=== PATIENT | female | born 1965 | race Two or more races ===

== ENCOUNTER 2017-12-25 11:40 | Inpatient (IN) | payer OTHER ==
[2017-12-25] MEDS ORDERED: levETIRAcetam 1000MG/NACL 100 ML IV ONE (11:45)
[2017-12-25] MEDS ORDERED: LORazepam 2 MG/ML INJ ONE (11:47)
[2017-12-25] MEDS ORDERED: ONDANSETRON 4 MG/2 ML VIAL ONE (11:55)
[2017-12-25] MEDS ORDERED: LORazepam 2 MG/ML INJ IVP ONE ×2 (11:55→12:14)
[2017-12-25] MEDS ORDERED: ONDANSETRON 4 MG/2 ML VIAL IVP ONE (11:55)
[2017-12-25] MEDS ORDERED: NS 1,000 ML IV ONE (11:56)
[2017-12-25] MEDS ORDERED: KETAMINE IVP ONE (12:02)
[2017-12-25 12:05] LABS: PLATELET COUNT 235 10^3/uL (150-400)
[2017-12-25] MEDS ORDERED: MIDAZOLAM 2 MG/2 ML VIAL IVP ONE (12:14)
[2017-12-25] MEDS ORDERED: MIDAZOLAM 2 MG/2 ML VIAL ONE (12:14)
--- NOTE | 2017-12-25 12:22 | EDPHY ---
H & P Stated Complaint: witnessed sz. Time Seen by Provider: 12/25/17 11:44 HPI/ROS: CHIEF COMPLAINT: Seizure HISTORY OF PRESENT ILLNESS: The patient presents the emergency department emergently with a seizure. She reportedly arrived in [place] from [place] week ago. Paramedics report according to bystander she has no known history of a seizure disorder. The patient is unable to provide any history as she is postictal. The patient did received 2 mg of Versed prior to arrival. REVIEW OF SYSTEMS: A comprehensive 10 point review of systems is unobtainable secondary to altered mental status Source: EMS Exam Limitations: Clinical condition - Personal History LMP (Females 10-55): Unknown Current Tetanus/Diphtheria Vaccine: Unsure Current Tetanus Diphtheria and Acellular Pertussis (TDAP): Unsure - Medical/Surgical History Other PMH: PMH: unknown - Family History Significant Family History: No pertinent family hx - Social History Smoking Status: Unknown if ever smoked - Physical Exam Exam: General Appearance: 39-year-old female appears stated age, postictal, confused and agitated Eyes: Pupils equal and round no pallor or injection ENT, Mouth: Mucous membranes moist, tongue bite Respiratory: There are no retractions, lungs are clear to auscultation Cardiovascular: Regular rate and rhythm Gastrointestinal: Abdomen is soft and nontender, no masses, bowel sounds normal Neurological: Withdrawals to pain all 4 extremities, unable to participate neurologic exam Skin: Warm and dry, no rashes Musculoskeletal: Neck is supple nontender Extremities: symmetrical, full range of motion Constitutional: Initial Vital Signs Temperature (C) 35.5 C L 12/25/17 11:42 Heart Rate 80 12/25/17 11:42 Respiratory Rate 18 12/25/17 11:42 Blood Pressure 109/92 H 12/25/17 11:42 O2 Sat (%) 97 12/25/17 11:42 O2 Delivery Mode Nasal Cannula O2 (L/minute) 3 Allergies/Adverse Reactions: Unable to Assess Allergy (Unverified 12/25/17 11:48) Home Medications: Medication Instructions Recorded Acetaminophen [Tylenol ES 500 mg 500 - 1,000 mg PO Q6 PRN 12/25/17 (*)] Desmoresina 178mcg 12/25/17 Herbals/Supplements -Info Only 1 ea PO DAILY 12/25/17 Medical Decision Making - Diagnostics EKG Interpretation: EKG: Complete interpretation has been separately recorded in the [facility] archive. Summary impression: Sinus rhythm, rate 80 Imaging Results: Imaging Impressions Chest X-Ray 12/25/17 11:44 Impression: Limited hypoventilatory chest with elevated right hemidiaphragm, basilar opacities suggesting atelectasis, and peribronchial thickening that could be related to bronchitis or mild fluid overload. Head CT 12/25/17 11:44 Impression: 1. No acute hemorrhage, hydrocephalus or mass effect. 2. 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 3. Consider MRI of the brain, if there is continued clinical concern. Findings and recommendations discussed with Emergency Department physician, Dr. Preston Black at 1225 hours on December 25, 2017. Final report concurs with initial preliminary interpretation. ED Course/Re-evaluation: The patient's pre-hospital blood sugar was 140. She arrives to the Emergency Department postictal from a witnessed seizure. She received Versed prior to arrival. The patient received an additional 1 mg of Ativan. She was taken for stat noncontrast head CT scan. The patient's vital signs were stable upon arrival. After returning from CT, the patient had another seizure. 1 g of Keppra was ordered. Noncontrast head CT scan demonstrates no evidence of intracranial hemorrhage. She does have several small punctate calcifications of uncertain significance. The patient's sodium returned at 113. She is started on hypertonic saline in the setting of her seizures. 100 mL of 3% saline has been ordered over 15 min. The patient will be admitted to the intensive care unit. Consultation is made with critical care, Hospital Medicine and Nephrology. Serum and urine osmolality has been ordered. Urine sodium is been ordered. Urine toxicology currently pending. Case management obtained additional history that the patient was having excess water intake today because she was having symptoms of dehydration. Plan for repeat I-STAT sodium following infusion of hypertonic saline. The i-STAT is now 115 following her bolus. I did consult Dr. Bragg who will arrange for the [facility] compliance investigator to evaluate the patient. He recommends no additional treatment at this point time in the setting of likely water intoxication. The patient will be transferred to the intensive care unit in critical condition. Update I did review the patient's urine studies and serum osmolality. 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 Differential Diagnosis: Differential diagnosis considered includes intracranial hemorrhage, hypoglycemia , hyponatremia, status epilepticus Critical Care Time: Critical care time exclusive of procedures and exclusive of the PA's time was 60 minutes, performed by myself, Preston Black MD. The patient presents to the ED with status epilepticus from a hyponatremic seizure. She required multiple IV medications for control of her seizures. The patient was started on hypertonic saline and will require admission to the intensive care unit. Consultation with Critical Care, Nephrology and Internal Medicine has been requested. - Data Points Laboratory Results: Laboratory Results 12/25/17 11:45 12/25/17 11:45 12/25/17 12/25/17 12/25/17 12:24 11:45 11:45 WBC 9.22 10^3/uL 10^3/uL (3.80-9.50) RBC 3.68 10^6/uL L 10^6/uL (4.18-5.33) Hgb 11.4 g/dL L g/dL (12.6-16.3) Hct 31.1 % L % (38.0-47.0) MCV 84.5 fL fL (81.5-99.8) MCH 31.0 pg pg (27.9-34.1) MCHC 36.7 g/dL g/dL (32.4-36.7) RDW 11.5 % % (11.5-15.2) Plt Count 235 10^3/uL 10^3/uL (150-400) MPV 9.2 fL fL (8.7-11.7) Neut % (Auto) 81.1 % H % (39.3-74.2) Lymph % (Auto) 14.6 % L % (15.0-45.0) [place] % (Auto) 3.4 % L % (4.5-13.0) Eos % (Auto) 0.0 % L % (0.6-7.6) Baso % (Auto) 0.1 % L % (0.3-1.7) Nucleat RBC Rel Count 0.0 % % (0.0-0.2) Absolute Neuts (auto) 7.48 10^3/uL H 10^3/uL (1.70-6.50) Absolute Lymphs (auto) 1.35 10^3/uL 10^3/uL (1.00-3.00) Absolute Monos (auto) 0.31 10^3/uL 10^3/uL (0.30-0.80) Absolute Eos (auto) 0.00 10^3/uL L 10^3/uL (0.03-0.40) Absolute Basos (auto) 0.01 10^3/uL L 10^3/uL (0.02-0.10) Absolute Nucleated RBC 0.00 10^3/uL 10^3/uL (0-0.01) Immature Gran % 0.8 % % (0.0-1.1) Immature Gran # 0.07 10^3/uL 10^3/uL (0.00-0.10) Sodium 113 mEq/L L* mEq/L (135-145) Potassium 4.2 mEq/L mEq/L (3.3-5.0) Chloride 81 mEq/L L mEq/L (97-110) Carbon Dioxide 18 mEq/l L mEq/l (22-31) Anion Gap 14 mEq/L mEq/L (8-16) BUN 5 mg/dL L mg/dL (7-23) Creatinine 0.5 mg/dL L mg/dL (0.6-1.0) Estimated GFR > 60 Glucose 123 mg/dL H mg/dL (70-100) Serum Osmolality Calcium 7.9 mg/dL L mg/dL (8.5-10.4) TSH Urine Osmolality Ur Random Sodium Urine Opiates Screen NEGATIVE ng/mL ng/mL (NEGATIVE) Urine Barbiturates NEGATIVE ng/mL ng/mL (NEGATIVE) Ur Phencyclidine Scrn NEGATIVE ng/mL ng/mL (NEGATIVE) Ur Amphetamine Screen Ur Amphetamines Screen NEGATIVE ng/mL ng/mL (NEGATIVE) U Benzodiazepines Scrn 585 ng/mL ng/mL (NEGATIVE) Urine Cocaine Screen NEGATIVE ng/mL ng/mL (NEGATIVE) U Marijuana (THC) Screen NEGATIVE ng/mL ng/mL (NEGATIVE) 12/25/17 12/25/17 12/25/17 11:30 11:30 11:22 WBC RBC Hgb Hct MCV MCH MCHC RDW Plt Count MPV Neut % (Auto) Lymph % (Auto) [place] % (Auto) Eos % (Auto) Baso % (Auto) Nucleat RBC Rel Count Absolute Neuts (auto) Absolute Lymphs (auto) Absolute Monos (auto) Absolute Eos (auto) Absolute Basos (auto) Absolute Nucleated RBC Immature Gran % Immature Gran # Sodium Potassium Chloride Carbon Dioxide Anion Gap BUN Creatinine Estimated GFR Glucose Serum Osmolality 231 mosmo/kg L mosmo/kg (280-297) Calcium TSH 0.778 uIU/mL uIU/mL (0.465-4.680) Urine Osmolality 537 mosmo/kg mosmo/kg (300-900) Ur Random Sodium 162 mEq/L H mEq/L (30-90) Urine Opiates Screen NEGATIVE (NEGATIVE) Urine Barbiturates NEGATIVE (NEGATIVE) Ur Phencyclidine Scrn NEGATIVE (NEGATIVE) Ur Amphetamine Screen NEGATIVE (NEGATIVE) Ur Amphetamines Screen U Benzodiazepines Scrn NEGATIVE (NEGATIVE) Urine Cocaine Screen NEGATIVE (NEGATIVE) U Marijuana (THC) Screen NEGATIVE (NEGATIVE) Medications Given: Sodium Chloride (Sodium Chloride 3%) 100 mls @ 0 mls/hr IV CONT SANJU PRN Reason: As Directed Stop: 06/23/18 12:29 Last Admin: 12/25/17 12:34 Dose: 100 mls Discontinued Medications Levetiracetam (Keppra (Premix)) 100 mls @ 400 mls/hr IV EDNOW ONE Stop: 12/25/17 11:59 Last Admin: 12/25/17 11:58 Dose: 100 mls Sodium Chloride (Ns) 1,000 mls @ 0 mls/hr IV ONCE ONE PRN Reason: Wide Open Stop: 12/25/17 11:57 Last Admin: 12/25/17 11:59 Dose: 1,000 mls Ketamine HCl 40 mg/ Syringe 0.8 mls @ 48 mls/hr IVP ONCE ONE Stop: 12/25/17 12:03 Last Admin: 12/25/17 12:04 Dose: 0.8 mls Lorazepam (Ativan Injection) 1 mg IVP EDNOW ONE Stop: 12/25/17 11:56 Last Admin: 12/25/17 11:57 Dose: 1 mg Lorazepam (Ativan Injection) 1 mg IVP EDNOW ONE Stop: 12/25/17 12:15 Last Admin: 12/25/17 12:15 Dose: 1 mg Midazolam HCl (Versed) 2 mg IVP EDNOW ONE Stop: 12/25/17 12:15 Last Admin: 12/25/17 12:15 Dose: 2 mg Ondansetron HCl (Zofran) 4 mg IVP EDNOW ONE Stop: 12/25/17 11:56 Last Admin: 12/25/17 11:59 Dose: 4 mg Departure - Departure Disposition: [facility] Acute Clinical Impression: Status epilepticus, Acute hyponatremia Condition: Critical
[2017-12-25] MEDS ORDERED: SODIUM Cl 3% 100 ML IV SCH (12:30)
[2017-12-25] MEDS ORDERED: KETAMINE 500 MG/10 ML VIAL ONE (12:31)
[2017-12-25] MEDS ORDERED: ONDANSETRON 4 MG/2 ML VIAL IVP PRN (12:45)
[2017-12-25] MEDS ORDERED: ONDANSETRON DISINTEGRATING 4 MG TAB PO PRN (12:45)
[2017-12-25] MEDS ORDERED: PROMETHAZINE HCL 25 MG/ML INJ IVP PRN (12:45)
--- NOTE | 2017-12-25 13:19 | CPEKG ---
Test Reason : OPEN Blood Pressure : / mmHG Vent. Rate : 080 BPM Atrial Rate : 079 BPM P-R Int : 160 ms QRS Dur : 094 ms QT Int : 418 ms P-R-T Axes : 056 065 012 degrees QTc Int : 483 ms Sinus rhythm Confirmed by Preston Black ([id number]) on 12/25/2017 1:18:34 PM Referred By: Confirmed By:Preston Black
--- NOTE | 2017-12-25 14:19 | ASMTCMCOM ---
CM Note CM Note Notes: Chart reviewed. Patient transferred from ED to ICU s/p seizures . She is hyponatremic. She is post ictal. She was accompanied by friends. From [place]. Needs TBD. CM to follow for needs. Plan: TBD Date Signed: 12/25/2017 02:18 PM Electronically Signed By:Anali Fry RN
[2017-12-25] MEDS ORDERED: ALTEPLASE 2 MG VIAL IVP PRN (14:45)
--- NOTE | 2017-12-25 14:50 | ASMTCMCOM ---
CM Note CM Note Notes: Pt arrived as a [facility] FED after suffering from a seizure. ED nurse manager statistics Andrés Allen requested this SW to call Jeramy Diaz ([phone]). Mr. Diaz provided the following information: He and his have known the pt for 10 years. She is a resident of [facility]. She came to [place] to visit on Monday 12/18. Over the last three days she felt increasingly sick to her stomach. She believed it was altitude sickness and spoke with her DrKyle in [place]. He was unsure of any additional medical advice at that time. He indicated that she drank excessive amounts of water over the last several days because she felt dehydrated. He stated that the pt takes 500mg of Valacyclovir for herpes (genital). He stated that she vomited (violently) this morning and had green loose stool. Approximately 2 hours later she had a seizure. He denied any current drug or alcohol use. She utilized OTC medication chlorophyll. This SW spoke with the pts brother Chip ([phone]) johann ([facility]) and sister Dianne([place]) on conference call. 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 He stated that the tumor caused Diabetes Insipidus and a tremendous amount of thirst. The pt has no history of seizures and is generally healthy. There is no family history of seizure. She has one daughter and one son. He provided insurance information and address. He stated she recently sold her house and was in the process of moving so address listed is previous address. This SW spoke with Dr. Armas with exhibit specialist Andrés. Dr. Armas is an line cook in [place]. Dr. Armas stated that the pt is allergic to Prazolone. He treats her for gastrointestinal issues but he has not prescribed any additional medications. No other medical information was obtained. Date Signed: 12/25/2017 02:49 PM Electronically Signed By:Malik Chery LCSW
[2017-12-25] MEDS ORDERED: DESMOPRESSIN ACETATE 4 MCG in NS 50 ML IV ONE (15:08)
--- NOTE | 2017-12-25 15:16 | PDGENHP ---
History and Physical - Chief Complaint Acute seizure - History of Present Illness Primary care provider: In [place] HPI: 52-year-old female presents with acute seizure, witnessed by friends, characterized as limb posturing and unresponsiveness with onset of symptoms on the morning of presentation. Per description from patient's friends, the patient had arrived in [place] approximately 1 week ago, traveling here from [facility]. Upon arrival, the patient had been indicating that she was feeling unwell, and per report, she had communicated with her doctor back in [place]. He had reportedly prescribed her Valtrex and 500 mg of tramadol. Is unclear what the exact indications were for these medications and whether not the dosages can actually be confirmed. Per her friends report, the patient continued to feel somewhat on well and she was drinking an excessive amount of water, reporting that she felt thirsty. On the morning of presentation, the patient began vomiting, and approximately 2 hr later she experienced the aforementioned witnessed seizure with resultant unresponsiveness. Her friends attempted to initiate CPR, with 5 chest thrusts, and EMS arrived at the scene. No further CPR was performed, they administered 2 mg of Versed, and they witnessed 1 episode of recurrent limb straightening/posturing and likely seizure EN route to the hospital. EMS also reported that she had some witnessed aspiration. Upon arrival at [facility], the patient received 1 mg of IV Ativan, went to the CT scan, and upon return began experiencing recurrent seizure like movements. She was subsequently dosed with 1 g of Keppra and she also received additional Ativan and ketamine in order to sedate her enough to obtain imaging. After receiving these medications, the patient was non-directable, essentially nonresponsive. History Information - Allergies/Home Medication List Allergies/Adverse Reactions: Unable to Assess Allergy (Unverified 12/25/17 11:48) Home Medications: Acetaminophen [Tylenol ES 500 mg (*)] 500 - 1,000 mg PO Q6 PRN 12/25/17 [Last Taken Unknown] Desmopresina 178 mcg PO 12/25/17 [Last Taken Unknown] Herbals/Supplements -Info Only 1 ea PO DAILY 12/25/17 [Last Taken Unknown] I have personally reviewed and updated: family history, medical history, social history, surgical history - Past Medical History Additional medical history: "Dry Diabetes" with a prescription for desmopression on her person, tabs absent - Surgical History Additional surgical history: No reported surgical history - Family History Additional family history: Unobtainable from patient - Social History Smoking Status: Unknown if ever smoked Alcohol Use: None Drug Use: None Additional social history: Patient is reportedly from [place], as mentioned above , she traveled from [facility] to [facility] approximately 1 week ago, patient 's friends report that she visits the local area twice per year Review of Systems Review of Systems: ROS: 10pt was reviewed & negative except for what was stated in HPI & below Respiratory: Reports: other (Aspiration) Gastrointestinal: Reports: vomitting Neurological: Reports: seizure, other (Unresponsiveness) Physical Exam Physical Exam: Temp Pulse Resp BP Pulse Ox 37 C 90 18 115/72 97 12/25/17 14:00 12/25/17 14:00 12/25/17 14:00 12/25/17 14:00 12/25/17 14:00 O2 (L/minute) 3 Constitutional: no apparent distress, appears nourished, not in pain, No chronically ill appearing Eyes: anicteric sclera, other (Centrally fixed pupils, reactive to light) Ears, Nose, Mouth, Throat: other (Mild bleeding on tongue, patient otherwise does not permit full oral exam) Cardiovascular: regular rate and rhythym, no murmur, rub, or gallop, No edema Respiratory: no respiratory distress, no rales or rhonchi, clear to auscultation Gastrointestinal: normoactive bowel sounds, soft, non-tender abdomen, no palpable masses Skin: warm, No abrasion, No rash Neurologic: other (Response to painful stimuli, localizes, does not follow commands), No AAOx3 (Alert awake oriented times 0) Psychiatric: encephalopathic, No agitated Lab Data & Imaging Review 12/25/17 11:45 12/25/17 14:25 WBC 9.22 10^3/uL (3.80-9.50) 12/25/17 11:45 RBC 3.68 10^6/uL (4.18-5.33) L 12/25/17 11:45 Hgb 11.4 g/dL (12.6-16.3) L 12/25/17 11:45 POC Hgb 11.9 gm/dL (12.6-16.3) L 12/25/17 13:06 Hct 31.1 % (38.0-47.0) L 12/25/17 11:45 POC Hct 35 % (38-47) L 12/25/17 13:06 MCV 84.5 fL (81.5-99.8) 12/25/17 11:45 MCH 31.0 pg (27.9-34.1) 12/25/17 11:45 MCHC 36.7 g/dL (32.4-36.7) 12/25/17 11:45 RDW 11.5 % (11.5-15.2) 12/25/17 11:45 Plt Count 235 10^3/uL (150-400) 12/25/17 11:45 MPV 9.2 fL (8.7-11.7) 12/25/17 11:45 Neut % (Auto) 81.1 % (39.3-74.2) H 12/25/17 11:45 Lymph % (Auto) 14.6 % (15.0-45.0) L 12/25/17 11:45 [place] % (Auto) 3.4 % (4.5-13.0) L 12/25/17 11:45 Eos % (Auto) 0.0 % (0.6-7.6) L 12/25/17 11:45 Baso % (Auto) 0.1 % (0.3-1.7) L 12/25/17 11:45 Nucleat RBC Rel Count 0.0 % (0.0-0.2) 12/25/17 11:45 Absolute Neuts (auto) 7.48 10^3/uL (1.70-6.50) H 12/25/17 11:45 Absolute Lymphs (auto) 1.35 10^3/uL (1.00-3.00) 12/25/17 11:45 Absolute Monos (auto) 0.31 10^3/uL (0.30-0.80) 12/25/17 11:45 Absolute Eos (auto) 0.00 10^3/uL (0.03-0.40) L 12/25/17 11:45 Absolute Basos (auto) 0.01 10^3/uL (0.02-0.10) L 12/25/17 11:45 Absolute Nucleated RBC 0.00 10^3/uL (0-0.01) 12/25/17 11:45 Immature Gran % 0.8 % (0.0-1.1) 12/25/17 11:45 Immature Gran # 0.07 10^3/uL (0.00-0.10) 12/25/17 11:45 POC Sodium 115 mEq/L (135-145) L* 12/25/17 13:06 Sodium 117 mEq/L (135-145) L* 12/25/17 14:25 POC Potassium 4.3 mEq/L (3.3-5.0) 12/25/17 13:06 Potassium 3.8 mEq/L (3.3-5.0) 12/25/17 14:25 POC Chloride 82 mEq/L (97-110) L 12/25/17 13:06 Chloride 87 mEq/L (97-110) L 12/25/17 14:25 Carbon Dioxide 20 mEq/l (22-31) L 12/25/17 14:25 Anion Gap 10 mEq/L (8-16) 12/25/17 14:25 POC BUN 3 mg/dL (7-23) L 12/25/17 13:06 BUN 4 mg/dL (7-23) L 12/25/17 14:25 Creatinine 0.4 mg/dL (0.6-1.0) L 12/25/17 14:25 POC Creatinine 0.4 mg/dL (0.6-1.0) L 12/25/17 13:06 Estimated GFR > 60 12/25/17 14:25 Glucose 104 mg/dL (70-100) H 12/25/17 14:25 POC Glucose 108 mg/dL (70-100) H 12/25/17 13:06 Serum Osmolality 231 mosmo/kg (280-297) L 12/25/17 11:30 Calcium 7.4 mg/dL (8.5-10.4) L 12/25/17 14:25 TSH 0.778 uIU/mL (0.465-4.680) 12/25/17 11:30 Urine Osmolality 114 mosmo/kg (300-900) L 12/25/17 14:37 Ur Random Sodium 34 mEq/L (30-90) 12/25/17 14:37 Urine Opiates Screen NEGATIVE ng/mL (NEGATIVE) 12/25/17 12:24 Urine Barbiturates NEGATIVE ng/mL (NEGATIVE) 12/25/17 12:24 Ur Phencyclidine Scrn NEGATIVE ng/mL (NEGATIVE) 12/25/17 12:24 Ur Amphetamine Screen NEGATIVE (NEGATIVE) 12/25/17 11:22 Ur Amphetamines Screen NEGATIVE ng/mL (NEGATIVE) 12/25/17 12:24 U Benzodiazepines Scrn 585 ng/mL (NEGATIVE) 12/25/17 12:24 Urine Cocaine Screen NEGATIVE ng/mL (NEGATIVE) 12/25/17 12:24 U Marijuana (THC) Screen NEGATIVE ng/mL (NEGATIVE) 12/25/17 12:24 Visualized and Interpreted Chest x-ray results: Yes Chest X-Ray results: other (Atelectasis, hypoventilation) Visualized and Interpreted EKG results: Yes EKG Interpretation: Positive for: normal sinsus rhythm Assessment & Plan Assessment: 52-year-old female presents with acute seizure and resultant encephalopathy secondary to severe hyponatremia Plan: 1. Hyponatremia. Severe, most likely cause of seizure -discussed with Dr. Elieser Black in the emergency department, he reports 100 mL of 3% hypertonic saline in the emergency department as well as 1 g of Keppra -discussed with Dr. Markus Moreno, consultation appreciated, our interpretation of the patient's urine oz and urine sodium level are indicative of an SIADH etiology which could be caused by exogenous consumption of desmopressin for her likely outpatient diagnosis of diabetes insipidus -repeating serum sodium level now, goal is to keep serum sodium level less than 120 with a goal correction rate of less than 8 mEq over 24 hr -will hold on additional IV fluids at this time as the patient is at risk for rapid serum sodium level correction in the absence of taking exogenous desmopressin -she will get a PICC line with frequent serum sodium level monitoring, and if greater than 120, nephrology will order IV DDAVP -she is currently polyuric, and when she is no longer encephalopathic, would anticipate that she will be hungry and thirsty, will require ongoing frequent serum sodium level monitoring as she initiate oral intake 2. Seizure. Acute, new onset, her friend's report no prior history -most likely caused by acute, severe hyponatremia, with potentially low threshold secondary to what appear to be calcifications in temporal lobe and potential use of tramadol -currently protecting airway, monitor on supplemental oxygen with central pulse ox -continue Keppra while the patient is severely hyponatremic -if she begins demonstrating recurrent seizure-like activity, dose with IV Ativan, and will need to consider transfer to [facility] for continuous EEG monitoring to ensure that she is being treated appropriately -neurology consultation appreciated 3. Acute encephalopathy. Evidenced by global brain dysfunction characterized as complete unresponsiveness, preceded by confusion, agitation, all of which are acute changes from her baseline, most likely secondary to a combination of the metabolic effects of hyponatremia as well as postictal seizure state -monitor airway as above -at risk for aspiration comma chest x-ray with no focal consolidation, monitor white blood cell count and if patient's oxygen requirements increasing, repeat chest x-ray 4. Atelectasis. Acute, most likely secondary hypoventilation, will get incentive spirometer when she is more awake 5. Suspected chronic diabetes insipidus. We need to confirm this diagnosis with the patient when she is in her awake state, holding desmopressin as above 6. Acute metabolic acidosis. 2/2 seizure, monitor Diet. NPO Prophylaxis. High risk patient, Lovenox 40 Code. Full Disposition. Anticipated discharge uncertain this time Patient is currently critically ill with high risk of worsening morbidity and/ or mortality secondary to issues outlined above. 45 min of critical care time were spent with this patient, at bedside, coordinating care with Dr. Elieser Black and Dr. Moreno, specifically treating her severe acute hyponatremia and seizure.
--- NOTE | 2017-12-25 15:22 | GCON ---
NEPHROLOGY CONSULTATION. DATE OF CONSULTATION: 12/25/2017 REASON FOR THE CONSULTATION: Severe hyponatremia. HPI: I have been asked to evaluate this patient regarding her hyponatremia. She is a 52-year-old Nigerien woman whose medical history is largely unknown. She lives in [place], but is in [place] with friends. For the past few days she apparently has been feeling poorly and this morning had several episodes of emesis according to her friends. It also sounds like she had at least 1 episode of diarrhea. At some point today she had a seizure and was brought to the ER with this. She apparently had a 2nd witnessed seizure in the ER. CT of the head is positive only for possible old neurocysticercosis. Labs were drawn which revealed a serum sodium of 113. She did receive 100 cc of 3% normal saline in the ER and a repeat point of care sodium was 115. She has not had any subsequent seizure activity. Random urine sodium was 162. Urine osmolality is 537. She is currently in the intensive care unit, but is unable to provide any history. She does have 2 friends present, but they are not particularly familiar with the details of her medical history. While reconciling her medications, pharmacy found a bottle of oral desmopressin in her belongings. Her friends are aware of a possible diagnosis of "dry diabetes" but do not know the details. The patient is hemodynamically stable and has made nearly 2 L of urine since admission. Repeat labs are pending. PAST MEDICAL HISTORY: 1. 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 2. Herpes simplex. PAST SURGICAL HISTORY: Unknown. ALLERGIES: No known drug allergies. ADMISSION MEDICATIONS: 1. Desmopressin 178 mcg tablets, dosing unknown. 2. Tylenol as needed. 3. Herbal supplement that her friends describe as chlorophyll. SOCIAL HISTORY: She lives in [place], but travels to the [place] frequently. She has family living in [place] and they typically travel to [place] twice per year. FAMILY HISTORY: Unknown. REVIEW OF SYSTEMS: Currently unobtainable, but reportedly positive for diarrhea , emesis and seizure activity. PHYSICAL EXAM: GENERAL: She is slightly agitated, but not communicative. VITAL SIGNS: Blood pressure 129/73, heart rate is 80, oxygenation is 100% on room air. HEENT: Sclerae anicteric. Oral mucosa is moist. She has a fair amount of dried blood around her mouth. NECK: Supple without JVD or lymphadenopathy. No carotid bruits. LUNGS: Clear to auscultation bilaterally. BACK: No CVA tenderness. HEART: Regular rate and rhythm. No murmurs, gallops, or rubs. ABDOMEN: Soft, nontender with normoactive bowel sounds. There is no hepatosplenomegaly, masses, or bruits. EXTREMITIES: There is no lower extremity edema. Her feet are warm and appear well perfused. SKIN : No skin rashes. NEURO: She is moving all 4 extremities, but is not communicative. : Biswas catheter is in place draining copious amounts of clear urine. LABS: On presentation, her serum sodium was 113 with potassium 4.2, chloride 81 , CO2 18, BUN 5, creatinine 0.5, glucose 123, calcium 7.9. TSH is 0.778. White blood cell count was 9.2, hemoglobin 11.4, platelets 235. IMPRESSION AND PLAN: Severe hyponatremia: This is most likely caused by her oral desmopressin. Her urine electrolytes were consistent with syndrome of inappropriate antidiuretic hormone, this would also be consistent with exogenous desmopressin intake. She is now making large amounts of urine and I suspect she will begin to correct rapidly. She did receive a small amount of 3 % saline, I would not administer any additional 3% until repeat labs are known. My suspicion is that she will correct rapidly and will require IV desmopressin to avoid overly rapid correction. Her goal should be to not exceed 120 by noon tomorrow. She will certainly require frequent labs and should have a PICC line placed for this purpose. I would not administer additional pharmacologic therapy such as oral salt tablets or diuretics. When she awakens, an oral fluid restriction will need to be discussed depending on her rate of correction. For now, I would prefer that her sodium be between 115 and 120 but not exceed 120 before noon tomorrow as previously stated. The details of her medical history are not clear, but presumably she carries a diagnosis of diabetes insipidus. This will need to be explored further after her sodium corrects. Thank you for the consultation. We will follow with you. /[id number]/MODL MTDD
--- NOTE | 2017-12-25 16:28 | GCON ---
NEUROLOGY CONSULT REFERRING PHYSICIAN: Madan Vogel MD CHIEF COMPLAINT: Acute seizure. HISTORY OF PRESENT ILLNESS: The patient lives in [place] and is visiting [place] with friends. She is 52 years old and has no known seizure history. Apparently, she has been prescribed desmopressin as that was found in her belongings. The patient had a witnessed convulsive event and came in postictal this morning and was found to have severe hyponatremia, along with other urine and serum findings suggestive of syndrome of inappropriate antidiuretic hormone causing the electrolyte abnormalities. In addition, the head CT showed some nonspecific calcifications in the right hemisphere, query neurocysticercosis. The patient received multiple doses of benzodiazepines, Keppra, and ketamine apparently and now has some sedation/delirium from this. She has been seen by Nephrology and is in ICU now. For past medical history, social history, family history, allergies, and home medications, please see Dr. Vogel's note. REVIEW OF SYSTEMS: Not obtainable. PHYSICAL EXAM: VITAL SIGNS: The patient's vital signs include a blood pressure of 115/72, temperature 36.6, heart rate 70s to 80s. NEUROLOGIC: Generally, the patient is encephalopathic and will respond to tactile and painful stimuli, but has no meaningful cognitive response at this time in terms of verbal output. She is moving all 4 extremities equally without any obvious weakness. She has no subtle tonic or clonic activity. No subtle myoclonus. No nystagmoid eye movements to suggest subtle seizure activity. In summary, I do not see any evidence of ongoing seizure activity based on the physical exam. IMPRESSION/PLAN: 1. Acute seizure. 2. Hyponatremia, severe. 3. Calcifications seen on head CT. The patient likely had a provoked seizure purely from hyponatremia or from the combination of hyponatremia plus an underlying structural abnormality suggested on the head CT of neurocysticercosis. In any case, I recommend continued seizure precautions and p.r.n. treatment with IV benzodiazepines if any recurrent seizures occur. If the patient begins having convulsive seizures again that are not clearly aborted by IV benzodiazepines, then I agree with Dr. Vogel that transfer to [facility] for continuous EEG monitoring would be indicated. I recommend we continue 500 mg of Keppra b.i.d. while in the hospital and upon discharge. From there, ideally, I could see her as an outpatient to review her history when she is coherent and perform an outpatient MRI of brain and EEG. She should be on indefinite driving restrictions and seizure precautions. Thank you for this consultation. Please do not hesitate to call if there are any questions or changes in neurologic status with this patient. Fifty total minutes floor time today reviewing imaging, records, labs, nephrology consultation, and coordination of care. /[id number]/MODL MTDD
--- NOTE | 2017-12-25 17:04 | PDMN ---
Medical Necessity Medical necessity: Pt meets inpt criteria per MD order and [facility] M-[id number], Seizure. Est LOS>2Mn for management of acute seizure, new onset, likely caused by acute, severe hyponatremia (sodium 113 on admission), acute encephalopathy, complete unresponsiveness preceded by confusion and agitation, atelectasis, acute metabolic acidosis. ICU monitoring/treatment, med nec inpt monitoring/treatment for critically ill pt.
[2017-12-25] MEDS: AMPICILLIN/SULBACTAM 3 GM in NS 100 ML IV SCH ×2 (17:50→23:30)
[2017-12-25 18:25] LABS: PLATELET COUNT 250 10^3/uL (150-400)
[2017-12-25] MEDS ORDERED: levETIRAcetam 1000MG/NACL 100 ML IV SCH (23:55)
[2017-12-26] MEDS ORDERED: D5W 500 ML IV ONE (04:00)
[2017-12-26] MEDS ORDERED: DESMOPRESSIN ACETATE 4 MCG in NS 50 ML IV ONE ×2 (04:00→18:30)
[2017-12-26 04:03] LABS: PLATELET COUNT 241 10^3/uL (150-400)
[2017-12-26] MEDS: AMPICILLIN/SULBACTAM 3 GM in NS 100 ML IV SCH (05:43)
[2017-12-26] MEDS ORDERED: ENOXAPARIN 40 MG/0.4 ML SYR SC SCH (09:00)
[2017-12-26] MEDS: levETIRAcetam 500MG/NACL 100 ML IV SCH ×2 (09:00→19:56)
--- NOTE | 2017-12-26 10:44 | SOAPPROG ---
SOAP Progress Note Assessment/Plan: Assessment: #hyponatremia -repeat urine studies with low urine Na and osm suggesting DDAVP had worn off-- I redosed her overnight around 4 am and gave 500 cc D5W IV to slow correction -suspected underlying diabetes insipidus and thus will need continued DDAVP dosing (brother reports pt has history of pituitary mass)-- will continue IV prn dosing today and transition to scheduled oral once able to take po and better understanding of appropriate dose -continue NPO for now -Na correcting appropriately at 121 currently-- will give some D5W now to slow a bit and anticipate need to give another dose DDAVP soon. -continue q2 hour Na checks in ICU for now-- goal Na by noon tomorrow < 129. I have left parameters for RN to call me (also call if significant increase in UOP as will need further DDAVP dosing then) #seizure -neuro following, suspected HypoNA related -CT with possible old sequelae of neurocysticercosis -plans for LP -do we need to cover with acyclovir for HSV given vaginal hsv-- will defer to neuro -still confused but starting to wake up some -on keppra #fever -cultures pending, plans for LP -?acyclovir I discussed with RN and neurology 12/26/17 11:24 Subjective: Still confused but waking up some- not following commands or speaking yet. Opening eyes and starting to track some when I was in room. Remains NPO. I gave her DDAVP 4mcg and d5w 500 cc at 4 am this am. UOP ~ 75 cc/hour currently. Objective: Vital Signs Temp Pulse Resp BP Pulse Ox 38 C 77 12 110/68 99 12/26/17 10:00 12/26/17 10:00 12/26/17 10:00 12/26/17 10:00 12/26/17 10:00 Microbiology 12/25/17 18:00 Respiratory Panel (PCR) - Final Nasal, Sinus - Swab No Organism Detected Laboratory Results 12/26/17 03:50 12/25/17 12/26/17 12/27/17 05:59 05:59 05:59 Intake Total 1684 Output Total 5375 125 Balance -3691 -125 Physical Exam - Physical Exam General Appearance: other (awake but not following commands, NAD) EENT: other (mmm, no Hsv lesions on mouth) Neck: supple Respiratory: lungs clear Cardiac/Chest: regular rate, rhythm Abdomen: normal bowel sounds, non-tender, soft Skin: warm/dry Extremities: other (no edema) Neuro/Psych: other (awake, starting to track some, not following commands or answering questions, moving all extremities) ICD10 Worksheet Patient Problems: Problems Problem Status Onset Acute hyponatremia Acute Status epilepticus Acute
[2017-12-26] MEDS ORDERED: D5W 1,000 ML IV SCH (11:30)
--- NOTE | 2017-12-26 11:38 | NEUROPROG ---
Assessment: 1. Acute seizure, likely provoked 2. Significant hyponatremia in the setting of pituitary tumor 3. History of genital herpes More history became available today from family regarding her medical care in [place]. Specifically, she apparently has a pituitary tumor for which she is treated with desmopressin. In addition she has a history of genital herpes. She has had a mild fever since being hospitalized, clear caused Her sodium her slowly being corrected She is also improving from the mental status view. Plan discussed at length with other consultants and hospitalist medicine team. 35 total minutes floor time reviewing all of the above, coordination of care. Recommendation: 1. Continue Keppra 500 mg twice daily 2. Indefinite driving restrictions and seizure precautions 3. Due to her fever, we discussed and the patient will go empiric acyclovir for the time being with tentative plans for LP if indicated. 4. General seizure precautions Subjective: No further seizures, mental status improving Objective: Vital Signs Temp Pulse Resp BP Pulse Ox 38 C 77 12 110/68 99 12/26/17 10:00 12/26/17 10:00 12/26/17 10:00 12/26/17 10:00 12/26/17 10:00 Microbiology 12/25/17 18:00 Respiratory Panel (PCR) - Final Nasal, Sinus - Swab No Organism Detected Laboratory Results 12/26/17 03:50 12/26/17 10:00 12/25/17 12/26/17 12/27/17 05:59 05:59 05:59 Intake Total 1684 Output Total 5360 285 Balance -3691 -285 Patient began sitting up in bed spontaneously and having semi purposeful movements without verbal output no seizure activity. Allergies/Adverse Reactions: Unable to Assess Allergy (Unverified 12/25/17 11:48)
--- NOTE | 2017-12-26 11:42 | GCON ---
CRITICAL CARE CONSULT DATE OF CONSULTATION: 12/26/2017 HISTORY OF PRESENT ILLNESS: This patient is a 52-year-old female, who normally resides in [place] but does visit the [place] area a couple of times a year. She was visiting recently and was feeling poo rly. Most of the details of her history are gained from the medical record and there is very little known. In any case, she apparently had contacted her primary care provider in [place], who prescribed Valtrex and tramadol, though the dosages were reported were uncommon and there was some discussion a bout treating her for altitude illness. In any case, she had been drinking quite a bit and was found to have desmopressin on her person. In any case, she had a witnessed seizure. The bystanders were uncertain what was happening and did CPR until EMS arrived, but there were no problems at that time. In the emergency department, she was being evaluated and was on her way for a head CT when she had r ecurrent seizure. She was treated with benzodiazepines, both in the field and in the emergency depar tment as well as gotten started on Keppra. Her head CT was unremarkable, but her sodium was found to be 113. She was, therefore, treated with fluid restrictions and she had a PICC line placed and has been monitored overnight. Her sodium did come up fairly rapidly and she got at least 2 doses of DDAV P while in the ICU. Of note, as well, she apparently had very brisk urine output during the overnigh t period. Her mental status has remained abnormal since arrival, though she does withdraw to pain an d moves all her extremities. PAST MEDICAL HISTORY: Is largely unknown, as is her previous surgical history at this time, and effo rts are being made to collect that information. Social history is similar and is family history. CURRENT MEDICATIONS: Keppra, Zofran, and Phenergan p.r.n. PHYSICAL EXAM: VITAL SIGNS: Her blood pressure was 110/70, heart rate of 67, respirations 12, oxyge n saturation 100% on room air. GENERAL: She was largely unresponsive to me though she did withdraw to pain. HEENT: Pupils were equally round and reactive to light. Nonicteric and noninjected. Muco us membranes are moist without erythema or exudate. NECK: Supple without adenopathy or jugular vein distention. RESPIRATORY: Breath sounds were diminished but clear to auscultate bilaterally without wheezes, rubs, or rales. HEART: Had a regular rate and rhythm without obvious murmur. ABDOMEN: S oft, nontender, nondistended without hepatosplenomegaly. EXTREMITIES: Show no clubbing, cyanosis, o r edema. NEUROLOGICAL: Other than the obtundation, her neurological exam was nonfocal. SKIN: Warm and dry without evidence of rash. OBJECTIVE DATA: Includes the head CT as described. White count on arrival was 9.2, went to 10.8 at 1800 lat night, down to 7.5 today. Hematocrit is 31, platelets of 241. Sodium initially was 113, an d as high as 122, it is now down to 121. Basic metabolic panel was otherwise unremarkable. AST was 48, but LFTs normal. Procalcitonin was negative. A tox screen was negative with the exception of th e benzos. ASSESSMENT/PLAN: 1. Seizure. This is likely related to her underlying hyponatremia, probably from excess desmopressi n usage. She may have been ill and taking excess exogenous water as well. The details are not clear . At this time, Renal is involved and we are correcting her sodium with target of less than 10 mEq/L in the first 24 hours and less than 18 mEq/L in the next 48 hours. In addition, she did have some p unctate calcifications on her head CT, which I was unable to actually locate, despite the radiologist 's descriptor. In any case, there is some concern about cysticercosis, but I do not think that is li madi the cause of her current seizure, though it is a possibility. 2. Hyponatremia. The etiology here is presumed to be from excess desmopressin. We are trying to co ntact family members to get better details about this issue, but we will have to correct her very slo wly and carefully. This could be also related to the cysticercosis, but it is unclear to me what carlos dumont this is playing. 3. Encephalopathy. This may be just a prolonged postictal state, but I think that an LP is quite re asonable, which we will have to wait because she got Lovenox today. /[id number]/MODL
[2017-12-26] MEDS: ACYCLOVIR 600 MG in D5W 100 ML IV SCH ×2 (16:42→21:06)
--- NOTE | 2017-12-26 17:03 | HOSPPROG ---
Hospitalist Progress Note Assessment/Plan: Assessment: 52-year-old female presents with acute seizure, acute encephalopathy, and severe hyponatremia Plan: 1. Hyponatremia. Severe, most likely cause of seizure, likely acute but with her chronically on desmopressin for DI, may have a chronic element as well -s/p 8mcg DDAVP o/n + hypotonic solution given rapid correction (from holding home desmopressin, with appropriate uOsm response) -cont freq sNa checks today, goal < 8mEq/day -appreciate ongoing renal consultation by Dr. Live 2. Seizure. Acute, most likely provoked by above -cont keppra 500mg bid -no recurrent seiz activity this AM 3. Acute encephalopathy. 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 Márquez, we agreed to empirically tx w/ IV Acyclovir + IVF and get LP 4. Atelectasis. Acute, most likely secondary hypoventilation, will get incentive spirometer when she is more awake 5. Suspected chronic diabetes insipidus. Reportedly 2/2 pituitary tumor (per brother, Chip, ) 6. Acute metabolic acidosis. 2/2 seizure, monitor Diet. NPO Prophylaxis. High risk patient, Lovenox 40 Code. Full Disposition. Anticipated discharge uncertain this time Patient remains critically ill with high risk of worsening morbidity and/or mortality secondary to issues outlined above; spent 40 min of critical care time with this patient, at bedside, coordinating care with Dr. Ramirez and Willi, specifically treating her persistent encephalopathy. Subjective: patient remains minimally responsive Objective: Vital Signs Temp Pulse Resp BP Pulse Ox 37.5 C 79 20 109/75 100 12/26/17 16:00 12/26/17 16:00 12/26/17 16:00 12/26/17 16:00 12/26/17 16:00 Microbiology 12/25/17 18:00 Respiratory Panel (PCR) - Final Nasal, Sinus - Swab No Organism Detected Laboratory Results 12/26/17 03:50 12/25/17 12/26/17 12/27/17 05:59 05:59 05:59 Intake Total 1684 Output Total 7420 560 Balance -6891 -560 - Physical Exam Constitutional: not in pain, No uncomfortable Eyes: PERRL, anicteric sclera, other (centrally fixed, eyes closed) Ears, Nose, Mouth, Throat: other (unable to inspect oral mucosa, patient clenching teeth) Cardiovascular: regular rate and rhythym, no murmur, rub, or gallop Respiratory: reduced air movement (poor insp effort), No expiratory wheeze, No inspiratory crackles, No bronchial breath sounds, No aegophony Gastrointestinal: normoactive bowel sounds, soft, non-tender abdomen, no palpable masses Neurologic: other (moving her extremities, brisk bilat patella reflexes), No AAOx3 (AAOx0), No facial droop Psychiatric: encephalopathic, other (responsive only to tactile stimuli) ICD10 Worksheet Patient Problems: Problems Problem Status Onset Status epilepticus Acute Acute hyponatremia Acute
[2017-12-26 22:39] LABS: HIV TYPE 1 AND 2 NEGATIVE (NEGATIVE)
[2017-12-27] MEDS: ACYCLOVIR 600 MG in D5W 100 ML IV SCH ×2 (05:04→14:15)
--- NOTE | 2017-12-27 07:43 | SOAPPROG ---
SOAP Progress Note Assessment/Plan: Assessment: #hyponatremia -suspected underlying diabetes insipidus as was on desmopressin as outpt and reported pituitary mass per brother. Urine studies suggest DI as she becomes polyuric and urine Osm drops significantly several hours after administration when med wears off. Suspect she was drinking excessive water prior to presentation and tipped her over to severe hyponatremia with initial Na 113 on Thursday. She is correcting appropriately at slow rate and is requiring about 4mcg IV DDAVP bid (last dosed around 7pm last night)- Na this am is 125. She appears to have been on 0.2mg desmopressin orally once a day in evening prior to admit-- I will schedule 0.1mg qhs for now and adjust further (starting with lower dose since she became so severely hyponatremic). Will use prn IV doses if needed for polyuria/over-correction. -continue NPO for now-- once cleared by speech, will place on 1.5 L fluid restriction for now and adjust as we see lab trend -will change to q4 Na checks with goal Na by noon today <128 and <132 by morning labs. I have left parameters for RN to call me (also call if significant increase in UOP as will need to give further DDAVP dosing then) #seizure -neuro following, suspected HypoNA related -CT with possible old sequelae of neurocysticercosis -plans for LP today -Discussed with neuro and covering with acyclovir for HSV given vaginal hsv -mental status much better today-- clearing -on keppra #fever -cultures pending, plans for LP -resp panel negative -acyclovir I discussed with RN Helen Olson MD [facility] pager [phone] 12/27/17 08:03 Subjective: Much better today- able to communicate. Tells me she was taking 0.2 mcg desmopressin nightly (we confirmed with bottle). No PANDEY, n/v, sob. Has not been cleared by speech to take po. No fevers. Got desmopressin 4mcg IV at 7pm last night. Objective: Vital Signs Temp Pulse Resp BP Pulse Ox 37.0 C 94 14 98/60 L 97 12/27/17 06:00 12/27/17 06:00 12/27/17 06:00 12/27/17 06:00 12/27/17 06:00 Microbiology 12/25/17 18:00 Respiratory Panel (PCR) - Final Nasal, Sinus - Swab No Organism Detected Laboratory Results 12/26/17 03:50 12/27/17 06:00 12/26/17 12/27/17 12/28/17 05:59 05:59 05:59 Intake Total 1682 1217 Output Total 5375 1880 40 [facility] -3691 -663 -40 Physical Exam - Physical Exam General Appearance: alert, no apparent distress EENT: other (mmm, tongue swollen) Cardiac/Chest: regular rate, rhythm Abdomen: non-tender, soft Skin: warm/dry Extremities: other (no edema) Neuro/Psych: alert, other (much better- follows commands, answers questions appropriately) ICD10 Worksheet Patient Problems: Problems Problem Status Onset Acute hyponatremia Acute Status epilepticus Acute
[2017-12-27] MEDS: levETIRAcetam 500MG/NACL 100 ML IV SCH ×2 (10:22→20:19)
[2017-12-27 10:52] LABS: PROTIME(PATIENT) 13.4 SEC (12.0-15.0)
[2017-12-27] MEDS ORDERED: LIDOCAINE 1% 300 MG/30 ML SDV ONE (12:05)
[2017-12-27] MEDS ORDERED: DESMOPRESSIN ACETATE 4 MCG/ML INJ IVP ONE (12:15)
[2017-12-27] MEDS ORDERED: D5W IV ONE (12:30)
[2017-12-27] MEDS ORDERED: D5W 300 ML IV ONE (12:30)
[2017-12-27] MEDS ORDERED: DESMOPRESSIN ACETATE IV ONE (12:30)
--- NOTE | 2017-12-27 12:40 | NEUROPROG ---
Assessment: 1. Acute seizure, likely provoked 2. Significant hyponatremia in the setting of pituitary tumor 3. History of genital herpes 4. calcifications on head CT The patient has continued to improve in terms of her mental status. No further seizures I was informed today that she will be flying back to [place] a week from tomorrow. She will likely be in the hospital a couple more days for electrolyte /medical treatment Recommendations: 1. Continue Keppra 500 mg twice daily, please provide prescription and she can follow up with her physician in in [place]. 2. Indefinite driving restrictions and seizure precautions 3. In [place], I recommend she see Neurology and have an MRI brain and EEG for possible epileptogenic abnormalities and evaluation for possible underlying neurocysticercosis. 3. Due to her fever, she is on empiric acyclovir for the time being with will have lumbar puncture today. We will see what the results yield. If there are signs of infection, then certainly further antimicrobial treatment will be indicated and other consults such as infectious disease. 4. General seizure precautions We are changing service today. We will sign off and continue to follow as needed. Please do not hesitate to call the neurology service (Dr Yeung) if there any changes in neurologic status or questions with this very pleasant patient. Subjective: Mental status improving and no further seizures Objective: Vital Signs Temp Pulse Resp BP Pulse Ox 37.1 C 65 16 98/59 L 94 12/27/17 08:00 12/27/17 10:00 12/27/17 10:00 12/27/17 10:00 12/27/17 10:00 Laboratory Results 12/27/17 10:30 12/27/17 10:30 12/26/17 12/27/17 12/28/17 05:59 05:59 05:59 Intake Total 1684 1217 Output Total 5375 1880 650 Balance -3691 -663 -650 PT 13.4 SEC (12.0-15.0) 12/27/17 10:30 INR 1.00 (0.83-1.16) 12/27/17 10:30 35 total minutes floor time; including review of interim labs, clinical notes, history and coordination care. Allergies/Adverse Reactions: Unable to Assess Allergy (Unverified 12/25/17 11:48)
--- NOTE | 2017-12-27 12:55 | PDHPUP ---
History & Physical Update H&P update statement: This history and physical update is based on an assessment of the patient which was completed after admission or registration (within 24 hours), but prior to the surgery/procedure. LP meningitis H&P update: H&P reviewed & patient examined, no change in patient's condition since H&P completed, changes noted
--- NOTE | 2017-12-27 12:56 | PDRADPN ---
Radiology Procedure Note Date of Procedure: 12/27/17 Radiologist: Jaret Luis Anesthesia: Local (Specify) (Lidocaine) Pre-op Diagnosis: meningitis Post-op Diagnosis: meningitis Indication: meningitis Procedure: LP Finding(s): Clear CSF 12 mL sent to lab Inf/Abcess present in the surg proc area at time of surgery?: No
--- NOTE | 2017-12-27 13:38 | PDINTPN ---
Software Validation Technician Progress Note Assessment/Plan: 52 F visiting from [place] with history of pituitary mass and DI treated with desmopressin, arrived recently complaining of severe thirst and reports drinking excess water but developed lethargy and eventual witnessed seizure. Na was 113 on admission and head CT with tiny calcifications but no overt pathology. She remained somnolent and postictal but had persistent fevers as well as known history of HSV and recent treatment with Valtrex. LP delayed until 12/27 05/22 Lovenox. * Hyponatremia- likely combination of excess desmopressin and excess water, now appropriately correcting with renal guidance. * Altered mental status dramatically improved and probably postictal plus hyponatremia, but fevers are concerning and acyclovir started 12/26. LP pending . * Seizure- likely related to severe hyponatremia. Subjective: Much more awake and reports feeling back to baseline Objective: Vital Signs Temp Pulse Resp BP Pulse Ox 37.1 C 66 15 111/66 97 12/27/17 12:00 12/27/17 12:00 12/27/17 12:00 12/27/17 12:00 12/27/17 12:00 Microbiology 12/27/17 12:50 Gram Stain - Final Cerebral Spinal Fluid Laboratory Results 12/27/17 10:30 12/26/17 12/27/17 12/28/17 05:59 05:59 05:59 Intake Total 1684 1217 Output Total 5375 1880 1100 Balance -3691 -663 -1100 PT 13.4 SEC (12.0-15.0) 12/27/17 10:30 INR 1.00 (0.83-1.16) 12/27/17 10:30 Physical Exam - Physical Exam General Appearance: alert, no apparent distress EENT: PERRL/EOMI Neck: supple Respiratory: lungs clear, normal breath sounds, No respiratory distress, No accessory muscle use Cardiac/Chest: regular rate, rhythm, No edema Abdomen: non-tender, soft, No distended Skin: normal color, warm/dry, No cyanosis Lymphatic: no adenopathy Extremities: No pedal edema Neuro/Psych: alert, normal mood/affect, oriented x 3 ICD10 Worksheet Patient Problems: Problems Problem Status Onset Acute hyponatremia Acute Status epilepticus Acute
--- NOTE | 2017-12-27 18:46 | HOSPPROG ---
Hospitalist Progress Note Assessment/Plan: Assessment: 52-year-old female presents with acute seizure, acute encephalopathy, and severe hyponatremia Plan: 1. Hyponatremia. Severe, most likely cause of seizure, likely acute but with her chronically on desmopressin for DI, may have a chronic element as well -s/p IV DDAVP, d/w Dr. Live, she recommends restarting a half-dose (0.1mg) of her home dosage (0.2mg) HS, and gauging effect -cont freq sNa checks today (q4h), currently sNa 125 -started PO diet today, 1.5L/day fluid restriction -monitor UOP w/ neves -since the underlying cause of her presentation was her home desmopressin + polydipsia (inducing what appeared to be SIADH-like), she will require sNa level monitoring as she resumes PO intake and PO desmopressin to ensure that she is at a safe dosage as well as a safe PO liq volume, prior to DC 2. Seizure. 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 Márquez, he recs cont keppra 500mg bid x 3 days and get MRI/EEG as outpt upon returning to [place] 3. Acute encephalopathy. Resolving today, intermittent lethargy s/p activity, but nearing her baseline per friend at bedside -viral encephalitis ruled out w/ LP today, stop Acyclovir -HSV/WNV PCRs pending, very low likelihood they will be positive w/ normal protein and 2 WBCs in CSF 4. Atelectasis. Acute, most likely secondary hypoventilation, IS/ambulate 5. 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 Acute metabolic acidosis. 2/2 seizure, monitor 7. Suspected aspiration pneumonitis. No e/o focal consolidation on CXR ( personally interpreted), fever but normal procalcitonin level -afeb x 24hrs w/o Abx -monitor WBC Diet. Regular Prophylaxis. High risk patient, Lovenox 40 Code. Full Disposition. ADD 12/29 at the earliest High level of medical complexity, high risk patient for worsening morbidity 2/2 issues outlined above, remain in SDU today. Subjective: patient more interactive today, some tongue discomfort Objective: Vital Signs Temp Pulse Resp BP Pulse Ox 36.9 C 78 14 109/66 95 12/27/17 16:00 12/27/17 18:00 12/27/17 18:00 12/27/17 18:00 12/27/17 18:00 Microbiology 12/27/17 12:50 Gram Stain - Final Cerebral Spinal Fluid Laboratory Results 12/27/17 10:30 12/27/17 17:50 12/26/17 12/27/17 12/28/17 05:59 05:59 05:59 Intake Total 1684 1217 567 Output Total 5369 1880 1400 Balance -3691 -663 -833 PT 13.4 SEC (12.0-15.0) 12/27/17 10:30 INR 1.00 (0.83-1.16) 12/27/17 10:30 - Physical Exam Constitutional: no apparent distress, appears nourished, not in pain, No uncomfortable Cardiovascular: regular rate and rhythym, no murmur, rub, or gallop, No edema Respiratory: no respiratory distress, inspiratory crackles, No expiratory wheeze , No bronchial breath sounds, No respiratory distress Gastrointestinal: normoactive bowel sounds, soft, non-tender abdomen, no palpable masses, No distension Musculoskeletal: other (full ROM neck w/o pain elicited) Neurologic: AAOx3, sensation intact bilaterally, No weakness (motor 5/5 bilat UE /LE), No facial droop Psychiatric: not anxious, flat affect, poor memory, other (lethargic but arousable to verbal stimuli; delayed speech pattern), No agitated ICD10 Worksheet Patient Problems: Problems Problem Status Onset Acute hyponatremia Acute Status epilepticus Acute
[2017-12-27] MEDS: DESMOPRESSIN 0.1 MG TAB PO SCH (20:19)
[2017-12-28] MEDS: levETIRAcetam 500MG/NACL 100 ML IV SCH (10:32)
[2017-12-28] MEDS: ENOXAPARIN 40 MG/0.4 ML SYR SC SCH (10:32)
--- NOTE | 2017-12-28 12:19 | ASMTCMCOM ---
CM Note CM Note Notes: Patient's brother contacted this CM and asked to speak with Financial Counselor. Rand to meet with brother and patient to determine financial status. Patient is from [facility] and here on a retreat. OT thought patient could use In-pt Rehab. Patient to transfer to . Date Signed: 12/28/2017 12:19 PM Electronically Signed By:Josefina Cintron LCSW
--- NOTE | 2017-12-28 12:31 | SOAPPROG ---
SOAP Progress Note Assessment/Plan: Assessment: 1. HypoNa: likely due to higher than normal po fluid intake in face of exogenous ddavp. Pt's brother produces lab results from earlier this year documenting Na 134. She denies any changes to her dosing or taking extra doses, but does note drinking much more fluids than normal in [place] due to dry climate. Na now normalized and started on po ddavp last night (half of admit dose). Will repeat urine osmol now that Na normal. Based on previous Na of 134, her dose may have been a bit high. She should not be on po fluid restriction. If repeat Na at noon reasonably stable, she could go to floor. Would cont bid labs for now to be safe. 2. Central DI: pt's with CI typically run Na around upper limit of normal, not lower. This suggests her ddavp dose may be a bit high as above. On /2 dose now , will adjust as needed. As long as has access to po fluids, she should not get into trouble with hyperNa. 3. Sz: presumably due to severe hypoNa, possibly exacerbated by possible foci noted on CT. Plan: 12/28/17 12:25 Subjective: Awake, alert. Able to recall details of medical history including stable ddavp dose for 2 years. Claims she had polyuria/polydipsia for years prior to being dx 'd with DI 2 years ago. Objective: Vital Signs Temp Pulse Resp BP Pulse Ox 36.8 C 88 12 106/58 L 96 12/28/17 12:00 12/28/17 12:00 12/28/17 12:00 12/28/17 12:00 12/28/17 12:00 Microbiology 12/27/17 12:50 Gram Stain - Final Cerebral Spinal Fluid Laboratory Results 12/28/17 06:00 12/28/17 12:05 12/27/17 12/28/17 12/29/17 05:59 05:59 05:59 Intake Total 1217 687 420 Output Total 6120 6524 650 Balance -663 -1987 - PT 13.4 SEC (12.0-15.0) 12/27/17 10:30 INR 1.00 (0.83-1.16) 12/27/17 10:30 Physical Exam - Physical Exam General Appearance: no apparent distress Respiratory: lungs clear Cardiac/Chest: regular rate, rhythm Abdomen: soft Extremities: pedal edema (none) ICD10 Worksheet Patient Problems: Problems Problem Status Onset Acute hyponatremia Acute Status epilepticus Acute
--- NOTE | 2017-12-28 15:04 | HOSPPROG ---
Hospitalist Progress Note Assessment/Plan: 52yo F with diabetes insipidus who is visiting from [place] presented with acute seizure found to be severely hyponatremic. #Hyponatremia: Resolving. Due to increased free water consumption upon coming to [place] in addition to exogenous DDAVP. - Nephrology following - Continue DDAVP at 0.1mg qhs (1/2 home dose) - Discontinue fluid restriction - Remove neves - BID Na checks #Seizure: Likely precipitated by above. CSF normal. - Continue keppra, will need neuro f/u with MRI/EEG as outpatient #Acute encephalopathy: Resolving with improvement in sodium levels. Nearing baseline. 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 These patients generally run hypernatremic so she was likely over-treated with her DDAVP dose, which has been reduced as above. Diet: regular, no fluid restriction VTE ppx: LMWH Code: full Dispo: Remain inpatient, transfer to floor for monitoring of Na. Subjective: Feeling better this morning. Reports mild nausea without emesis that self-resolved. She reports being clearer in her thinking. Objective: Vital Signs Temp Pulse Resp BP Pulse Ox 36.8 C 88 12 106/58 L 96 12/28/17 12:00 12/28/17 12:00 12/28/17 12:00 12/28/17 12:00 12/28/17 12:00 Microbiology 12/27/17 12:50 Gram Stain - Final Cerebral Spinal Fluid Laboratory Results 12/28/17 06:00 12/28/17 12:05 12/27/17 12/28/17 12/29/17 05:59 05:59 05:59 Intake Total 2683 378 8853 Output Total 1880 2205 1050 Balance -663 -1987 20 PT 13.4 SEC (12.0-15.0) 12/27/17 10:30 INR 1.00 (0.83-1.16) 12/27/17 10:30 - Physical Exam Constitutional: no apparent distress, appears nourished, not in pain Eyes: PERRL, anicteric sclera, EOMI Ears, Nose, Mouth, Throat: moist mucous membranes, hearing normal, ears appear normal, no oral mucosal ulcers Cardiovascular: regular rate and rhythym, no murmur, rub, or gallop Respiratory: no respiratory distress, no rales or rhonchi, clear to auscultation Gastrointestinal: normoactive bowel sounds, soft, non-tender abdomen, no palpable masses Skin: no rashes or abrasions, no fluctuance, no induration Neurologic: AAOx3 (albeit slow to respond at times), sensation intact bilaterally, CN II-XII Intact, No weakness ICD10 Worksheet Patient Problems: Problems Problem Status Onset Acute hyponatremia Acute Status epilepticus Acute
[2017-12-28] MEDS: levETIRAcetam 500 MG TAB PO SCH (22:11)
[2017-12-28] MEDS: DESMOPRESSIN 0.1 MG TAB PO SCH (22:11)
[2017-12-29] MEDS: ENOXAPARIN 40 MG/0.4 ML SYR SC SCH (08:14)
[2017-12-29] MEDS: levETIRAcetam 500 MG TAB PO SCH (08:15)
--- NOTE | 2017-12-29 09:19 | SOAPPROG ---
SOAP Progress Note Assessment/Plan: Assessment/Plan: 52 y/o F with a known h/o DI and pituitary adenoma who presented with seizures found to have severe hyponatremia likely to chronic ddAVP and increased po intake, now improved. 1. Hyponatremia -Na up to 137 again today -Uosm still low in 100's -would continue ddAVP at 0.1mcg qhs -allow patient to drink fluids -may monitor daily, arrange f/u with [facility] as outpt 2. Central DI: Will need appropriate outpt follow-up labs to ensure correct dosing of ddAVP 3. Sz: S/p 3% presumably due to severe hypoNa, possibly exacerbated by possible foci noted on CT. On Keppra. 12/29/17 09:59 Subjective: No events overnight. Resting. Objective: Vital Signs Temp Pulse Resp BP Pulse Ox 36.8 C 59 L 13 106/62 93 12/29/17 07:49 12/29/17 07:49 12/29/17 07:49 12/29/17 07:49 12/29/17 07:49 Microbiology 12/27/17 12:50 Gram Stain - Final Cerebral Spinal Fluid Laboratory Results 12/28/17 06:00 12/29/17 05:30 12/28/17 12/29/17 12/30/17 05:59 05:59 05:59 Intake Total 687 2220 Output Total 2675 1550 Balance -1987 670 PT 13.4 SEC (12.0-15.0) 12/27/17 10:30 INR 1.00 (0.83-1.16) 12/27/17 10:30 Physical Exam - Physical Exam General Appearance: WD/WN, no apparent distress EENT: PERRL/EOMI Neck: full range of motion, supple Respiratory: chest non-tender, lungs clear Cardiac/Chest: normal peripheral pulses, regular rate, rhythm Abdomen: normal bowel sounds, non-tender, soft Skin: normal color, warm/dry Extremities: normal range of motion, non-tender Neuro/Psych: no motor/sensory deficits ICD10 Worksheet Patient Problems: Problems Problem Status Onset Acute hyponatremia Acute Status epilepticus Acute
--- NOTE | 2017-12-29 15:17 | HOSPPROG ---
Hospitalist Progress Note Assessment/Plan: 52yo F with diabetes insipidus who is visiting from [place] presented with acute seizure found to be severely hyponatremic. #Hyponatremia: Resolved and stable after a day or two of PO intake and decreased DDAVP dose. Due to increased free water consumption upon coming to [place] in addition to exogenous DDAVP. - Nephrology following - Continue DDAVP at 0.1mg qhs (1/2 home dose) - No fluid restriction #Seizure: Likely precipitated by above. CSF normal. - Continue keppra, will need neuro f/u with MRI/EEG as outpatient #Acute encephalopathy: Resolved with improvement in sodium levels. Nearing baseline. 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 These patients generally run hypernatremic so she was likely over-treated with her DDAVP dose, which has been reduced as above. Diet: regular VTE ppx: LMWH Code: full Dispo: Stable from medical stand point; discussed with nephrology and they are ok with her discharging with follow up. Therapy services have recommended inpatient rehab for ongoing balance issues and she is currently being evaluated for this. If accepted and patient agreeable, will discharge to inpatient rehab. Otherwise, patient plans to go back to [place] next Thursday and will follow up with her providers there at that time. Subjective: Feeling much better today. Got up and showered with help of PT. Eating great. No issues with urination. Per brother, who heard patient talking to family in [place], patient has been sharp in conversation. Objective: Vital Signs Temp Pulse Resp BP Pulse Ox 36.7 C 62 12 107/58 L 95 12/29/17 11:32 12/29/17 11:32 12/29/17 11:32 12/29/17 11:32 12/29/17 11:32 Microbiology 12/27/17 12:50 Gram Stain - Final Cerebral Spinal Fluid Laboratory Results 12/28/17 06:00 12/29/17 05:30 12/28/17 12/29/17 12/30/17 05:59 05:59 05:59 Intake Total 687 2220 Output Total 2675 1550 500 Balance -1987 670 -500 PT 13.4 SEC (12.0-15.0) 12/27/17 10:30 INR 1.00 (0.83-1.16) 12/27/17 10:30 - Physical Exam Constitutional: no apparent distress, appears nourished, not in pain Eyes: PERRL, anicteric sclera, EOMI Ears, Nose, Mouth, Throat: moist mucous membranes, hearing normal, ears appear normal, no oral mucosal ulcers Cardiovascular: regular rate and rhythym, no murmur, rub, or gallop Respiratory: no respiratory distress, no rales or rhonchi, clear to auscultation Gastrointestinal: normoactive bowel sounds, soft, non-tender abdomen, no palpable masses Musculoskeletal: full muscle strength, no muscle tenderness, normal joint ROM Neurologic: AAOx3, sensation intact bilaterally, CN II-XII Intact, No weakness, No numbness Psychiatric: interacting appropriately, not anxious, not encephalopathic, thought process linear ICD10 Worksheet Patient Problems: Problems Problem Status Onset Acute hyponatremia Acute Status epilepticus Acute
[2017-12-29 16:00] VITALS: BP 110/71
--- NOTE | 2017-12-29 16:43 | PDDCSUM ---
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 Acute severe hyponatremia, complicated by 2. Seizure and 3. Acute encephalopathy 4. Residual dizziness/balance issues 5. Central diabetes insipidus Brief Hospital Course by Problem: 52yo F with diabetes insipidus who is visiting from [place] presented with acute seizure found to be severely hyponatremic. 1. Hyponatremia: Na 113 on admission and this was corrected in a slow and methodical fashion. Due to increased free water consumption upon coming to [place] in addition to exogenous DDAVP. We have decreased her desmopressin dose from 0.2 to 0.1mg daily. She has been tolerating full PO diet for several days with stable sodium levels. Her sodium was 137 on discharge. 2. Seizure: Likely precipitated by above; however, she does have small (1-2mm) right temporal calcifications seen on head CT that could be nidus for seizure from old neurocysticercosis. CSF normal. She was started on keppra 500mg BID. Will need neurology follow up with MRI/EEG as outpatient. Seizure precautions given including no driving. 3. Acute encephalopathy: Resolved with improvement in sodium levels. At baseline per brother. 4. Dizziness: Intermittent unsteadiness on feet. Therapy services recommend supervision at home. She is discharging to stay with her brother for a few days. She plans to go back to [place] on Thursday, 01/04. 5. 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 These patients generally run hypernatremic so she was likely over-treated with her DDAVP dose, which has been reduced as above. Medications: Please refer to EMR for complete list. Changes this hospitalization include decrease in desmopressin from 0.2 to 0.1mg daily and addition of levetiracetam 500mg BID. Follow Up Plan: Patient plans to return to home in [place] on 01/04. 1. BMP early next week to monitor Na level. Continue half dose (0.1mg) desmopressin at least until that time. 2. Neurology follow up in [place]. We recommend brain MRI and EEG and discuss whether to continue keppra. 3. West Nile virus and HSV CSF PCR pending at discharge Physical Exam: Vitals reviewed, stable and unremarkable. Heart regular without murmur. Lungs clear. Abdomen soft. No lower extremity edema or JVD. She is alert and oriented with full strength and intact sensation throughout. Reflexes 2+ throughout. She does not have upper or lower extremity ataxia on my examination.
== END 2017-12-29 20:08 | disposition home or self-care (01) | DRG 640 ==
LOC: EDBD 11:40 → F2N 13:31 → F3N 12-28 17:00
PROVIDERS: ADMIT Internal Medicine; ATTEND Internal Medicine
PROC: 009U3ZX Drainage of Spinal Canal, Percutaneous Approach, Diagnostic (ICD-10-PCS; principal; 2017-12-27)
DX: E87.1 Hypo-osmolality and hyponatremia (principal); E23.2 Diabetes insipidus; G93.40 Encephalopathy, unspecified; R56.9 Unspecified convulsions; E87.2 Acidosis; A60.09 Herpesviral infection of other urogenital tract; Z86.011 Personal history of benign neoplasm of the brain
CPT/HCPCS: 80305; 80307; 82435-PO; 82565-PO; 82947-PO; 84132-PO; 84295-PO; 84520-PO; 85014-PO; 92507-GN; 92523-GN; 92610-GN; 96365; 97110-GP; 97116-GP; 97161-GP; 97166-GO; 97535-GO; C1751; G0480; J0133; J0295; J1650; J1953; J2060; J2250; J2405; J2597